=== PATIENT | male | born 1975 | race Caucasian/White ===

== ENCOUNTER → 2019-04-10 | Outpatient (REF) ==
--- NOTE | 2019-04-10 14:34 | REP ---
REASON: Disability. PRIORS: None. FINDINGS: Three views of the shoulder were performed. The acromioclavicular and glenohumeral relationships are within normal limits. There is no acute fracture or destructive osseous lesions. Electronically Signed by Ld Delgado DO 04/10/2019 05:12 P
--- NOTE | 2019-04-10 15:33 | REP ---
LEFT KNEE, FIVE VIEWS: Five views of the left knee performed. No fracture or dislocation is seen. There is mild medial joint space narrowing. There is mild narrowing of the lateral patellofemoral compartment. There does not appear to be a significant joint effusion. IMPRESSION: Mild degenerative changes. Electronically Signed by Jose Shaikh MD 04/12/2019 10:46 A
== END ==
LOC: M SMT 13:07
PROVIDERS: ATTEND Internal Medicine
DX: Z02.71 Encounter for disability determination (principal)

== ENCOUNTER → 2022-12-21 | Outpatient (REF) | LOC: M PLAIMG 14:37 | PROVIDERS: ATTEND Internal Medicine | DX: Z11.52 Encounter for screening for COVID-19 (principal) ==